=== PATIENT | female | born 1990 | race Caucasian/White ===

== ENCOUNTER 2016-12-19 07:05 | Emergency (ER) | payer OTHER ==
[2016-12-19] MEDS ORDERED: METOCLOPRAMIDE INJ 10MG/2ML VIAL (J2765) As Ordered ONE (07:47)
[2016-12-19 08:11] LABS: MEAN CORPUSCULAR HEMOGLOBIN 29.9 pg (27.0-33.0); MEAN CORPUSCULAR HGB CONC 35.9 g/dl (32.0-36.5); MEAN CORPUSCULAR VOLUME 83.2 fl (80.0-96.0); PLATELET COUNT, AUTOMATED 161 k/mm3 (150-450); RED CELL DISTRIBUTION WIDTH 12.8 % (11.5-14.5); WHITE BLOOD COUNT 13.2 K/mm3 (4.0-10.0)
[2016-12-19 08:30] LABS: ANION GAP 10 MEQ/L (8-16); BLOOD UREA NITROGEN 18 MG/DL (7-18); CALCIUM LEVEL 8.6 MG/DL (8.5-10.1); CARBON DIOXIDE LEVEL 25 MEQ/L (21-32); CHLORIDE LEVEL 104 MEQ/L (98-107); CREATININE FOR GFR 0.73 MG/DL (0.55-1.02); GLOMERULAR FILTRATION RATE > 60.0 (>60); GLUCOSE, FASTING 98 MG/DL (70-105); POTASSIUM SERUM 3.3 MEQ/L (3.5-5.1); SODIUM LEVEL 139 MEQ/L (136-145)
[2016-12-19 08:31] LABS: HYPERSEGMENTED POLYS 2+
[2016-12-19] MEDS ORDERED: POTASSIUM CHLORIDE 10 MEQ SR TABLET As Ordered ONE (09:04)
--- NOTE | 2016-12-19 09:32 | EDDOCDS ---
Physician Documentation [facility] Name: Thais Honeycutt Age: 25 yrs Sex: Female : 1990 Arrival Date: 12/19/2016 Time: 07:05 Bed I2 / M2 Private MD: Disposition: 12/19/16 09:08 Discharged to Home/Self Care. Impression: Nausea with vomiting, unspecified. - Condition is Stable. - Discharge Instructions: Nausea and Vomiting. - Prescriptions for Reglan 10 mg Oral Tablet - take 1 tablet by ORAL route every 6 hours As needed take 30 minutes before meals and at bedtime; 20 tablet. - Medication Reconciliation, Local Pharmacy Hours form. - Follow up: Emergency Department; When: As needed; Reason: Worsening of conditions. Follow up: Your Concreter; When: Call to arrange an appointment; Reason: Wound/Symptom Recheck, Recheck today's complaints, Continuance of care. - Problem is new. - Symptoms have improved. Historical: - Allergies: no known allergies; - Home Meds: 1. Vitamin Oral tab 1 tab once daily - PMHx: none; - PSHx: D & C; - Social history: Smoking status: Patient states former smoker of tobacco. No barriers to communication noted, The patient speaks fluent Panamanian, Speaks appropriately for age. - Family history: Not pertinent. - : The pt / caregiver states he / she is not on anticoagulants. Home medication list is obtained from the patient. - Exposure Risk Screening:: None identified. 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 2 in. (157.48 cm) (R); Pain 5/10; 09:16 BP 114 / 64; Pulse 101; Resp 20; Temp 97.9(O); Pulse Ox 99% on R/A; Pain 0/10; ct3 07:11 Body Mass Index 23.78 (58.97 kg, 157.48 cm) mlb1 MDM: 07:21 IV Saline Lock ordered. dt4 07:21 NS 0.9% 1000 ml IV at bolus once ordered. dt4 07:21 Metoclopramide 20 mg IV at 80 mg/hr once over 15 mins ordered. dt4 07:21 Fluid Challenge ordered. dt4 07:22 CBC with Diff Ordered. EDMS 07:22 Basic Metabolic Profile Ordered. EDMS 07:36 Financial registration complete. mm15 08:14 DIFFERENTIAL NO CHARGE Ordered. EDMS 08:14 PLATELET ESTIMATE Ordered. EDMS 08:33 [facility] Payment Agreement was scanned into [employer] and attached to record. lg 09:02 Potassium Chloride Extended Release Tablet 40 mEq PO once ordered. jc4 Administered Medications: 08:01 Drug: NS 0.9% 1000 ml [sodium chloride 0.9 % intravenous solution] Route: IV; Rate: ja5 bolus; Site: left wrist; 09:20 Follow up: IV Status: Completed infusion ja5 08:01 Drug: Metoclopramide 20 mg [metoclopramide 5 mg/mL injection solution] Route: IV; Rate: ja5 80 mg/hr; Infused Over: 15 mins; Site: left wrist; 09:02 CANCELLED (Other Intervention Used): Potassium Chloride Packet 40 mEq PO once dt4 09:07 Drug: Potassium Chloride 40 mEq [potassium chloride ER 10 mEq tablet,extended release ja5 (4 tabs)] Route: PO; Signatures: Dispatcher [employer] EDMS Drew Garcia, Reg Reg lg Bonilla Smallwood RN RN mlb1 Jasmin Mack RN RN jc4 Moe Delacruz mm15 Klarissa Lafleur, PABostonC PA-C dt4 Tessy Elena,RN RN ja5 The chart was reviewed and I authenticate all verbal orders and agree with the evaluation and treatment provided.Corrections: (The following items were deleted from the chart) 09:02 08:36 Potassium Chloride Packet 40 mEq PO once ordered. dt4 dt4 Attachments: 08:33 [facility] Payment Agreement lg MTDD
--- NOTE | 2016-12-19 09:32 | EDDOCDS ---
Nurse's Notes [facility] Name: Thais Honeycutt Age: 25 yrs Sex: Female : 1990 Arrival Date: 12/19/2016 Time: 07:05 Bed I2 / M2 Private MD: Diagnosis: Nausea with vomiting, unspecified Presentation: 12/19 07:09 Presenting complaint: Patient states: 12 weeks N/V began last night. Adult mlb1 Sepsis Screening: The patient does not have new or worsening altered mentation. Patient's respiratory rate is less than 22. Systolic blood pressure is greater than 100. Patient has a qSOFA score of 0- Negative Sepsis Screen. Suicide/Homicide risk assessment- the patient denies having any suicidal and/or homicidal ideations and does not present with any other emotional, behavioral or mental health complaints. Status: The patient is a dependent. Transition of care: patient was not received from another setting of care. 07:09 Acuity: ROHAN Level 4 mlb1 07:09 Method Of Arrival: Walkin/Carried/Asstd mlb1 07:37 Acuity level changed due to complexity of care. mlb1 07:37 Acuity: ROHAN Level 3 mlb1 Triage Assessment: 07:11 General: Appears in no apparent distress, Behavior is appropriate for age, cooperative. mlb1 Pain: Location: suprapubic area Pain currently is 5 out of 10 on a pain scale. Pt Declines HIV testing. GI: Reports nausea, vomiting. 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 Vitamin Oral tab 1 tab once daily - PMHx: none; - PSHx: D & C; - Social history: Smoking status: Patient states former smoker of tobacco. No barriers to communication noted, The patient speaks fluent Tamazight, Speaks appropriately for age. - Family history: Not pertinent. - : The pt / caregiver states he / she is not on anticoagulants. Home medication list is obtained from the patient. - Exposure Risk Screening:: None identified. Screenin:20 Screening information is obtained from the patient. Fall risk: No risks identified. ja5 Assistance ADL's: requires no assistance with activities of daily living. Abuse/DV Screen: The patient / caregiver reports he/she is: not in a situation that causes fear, pain or injury. Nutritional screening: On no prescribed diet. Advance Directives: Currently, there is no health care proxy. There is no active DNR order. There is no living will. There is no Power of Tank Truck Driver. home support is adequate. Assessment: 07:17 General: Appears uncomfortable, Behavior is appropriate for age, cooperative. Pain: ja5 Location: right lower quadrant and left lower quadrant Pain currently is 5 out of 10 on a pain scale. Neurological: Level of Consciousness is awake, alert, Oriented to person, place, time. Cardiovascular: Capillary refill < 3 seconds Heart tones S1 S2 present. Respiratory: Airway is patent Respiratory effort is even, unlabored, Respiratory pattern is regular, symmetrical, Breath sounds are clear bilaterally. GI: Abdomen is non- distended Bowel sounds present X 4 quads. Abd is soft X 4 quads Reports nausea. Derm: Skin is intact, Skin is pink, warm & dry. 09:28 General: Appears in no apparent distress, Behavior is appropriate for age, cooperative. ja5 Pain: Denies pain. Neurological: Level of Consciousness is awake, alert, Oriented to person, place, time. Cardiovascular: Capillary refill < 3 seconds. Respiratory: Airway is patent Respiratory effort is even, unlabored, Respiratory pattern is regular, symmetrical. GI: Denies cramping, nausea, vomiting, pain. Derm: Skin is intact, Skin is pink, warm & dry. 09:29 General: Patient states "I am feeling much better" as she sits up in stretcher with no ja5 complaints of abdominal pain, nausea or vomiting. . Vital Signs: 07:11 BP 120 / 66; Pulse 114; Resp 16; Temp 98.4(TE); Pulse Ox 98% on R/A; Weight 58.97 kg mlb1 (R); Height 5 ft. 2 in. (157.48 cm) (R); Pain 5/10; 09:16 BP 114 / 64; Pulse 101; Resp 20; Temp 97.9(O); Pulse Ox 99% on R/A; Pain 0/10; ct3 07:11 Body Mass Index 23.78 (58.97 kg, 157.48 cm) mlb1 Vitals: 07:11 Log In Time: December 19, 2016 at 07:05. mlb1 07:40 Heart Tones 156BPM. jc4 ED Course: 07:07 Patient visited by Geremias Melton, Reg. pm4 07:07 Patient moved to Waiting pm4 07:09 Patient visited by Bonilla Smallwood, RAMZE. mlb1 07:10 Triage Initiated mlb1 07:10 The patient / caregiver is instructed regarding the plan of care and ED course. ja5 07:13 Patient visited by Bonilla Smallwood, RAMEZ. mlb1 07:13 Jasmin Mack, RN is Primary Nurse. mlb1 07:13 Tessy Elena,RAMEZ is Primary Nurse. mlb1 07:13 Patient moved to I2 / M2 mlb1 07:15 Klarissa Lafleur PA-C is PHCP. dt4 07:15 Axel Mcneal MD is Attending Physician. dt4 07:15 Patient visited by Klarissa Lafleur PA-C. dt4 07:59 Basic Metabolic Profile Sent. jc4 07:59 CBC with Diff Sent. jc4 08:00 Inserted saline lock: 20 gauge in left wrist. Pt tolerated procedure well. jc4 08:01 Missed attempts: 20 gauge X 2 in right antecubital area, in left antecubital area. ja5 08:25 Patient visited by Melba Ornelas PCA. ct3 08:33 [facility] Payment Agreement was scanned into [employer] and attached to record. lg 08:57 DIFFERENTIAL NO CHARGE Sent. jc4 09:08 Your Cellophaner is Referral Physician. dt4 09:17 Patient visited by Melba Ornelas PCA. ct3 09:27 Discontinued lock intact, bleeding controlled, pressure dressing applied, No ja5 redness/swelling at site. No procedures done that require assistance. Administered Medications: 08:01 Drug: NS 0.9% 1000 ml [sodium chloride 0.9 % intravenous solution] Route: IV; Rate: ja5 bolus; Site: left wrist; 09:20 Follow up: IV Status: Completed infusion ja5 08:01 Drug: Metoclopramide 20 mg [metoclopramide 5 mg/mL injection solution] Route: IV; Rate: ja5 80 mg/hr; Infused Over: 15 mins; Site: left wrist; 09:02 CANCELLED (Other Intervention Used): Potassium Chloride Packet 40 mEq PO once dt4 09:07 Drug: Potassium Chloride 40 mEq [potassium chloride ER 10 mEq tablet,extended release ja5 (4 tabs)] Route: PO; Order Results: Lab Order: CBC with Diff; SPEC'M 12/19/16 07:56 Test: WHITE BLOOD COUNT; Value: 13.2; Range: 4.0-10.0; Abnormal: Above high normal; Units: K/mm3; Status: F Test: RED BLOOD COUNT; Value: 4.95; Range: 4.00-5.40; Units: M/mm3; Status: F Test: HEMOGLOBIN; Value: 14.8; Range: 12.0-16.0; Units: g/dl; Status: F Test: HEMATOCRIT; Value: 41.2; Range: 36.0-47.0; Units: %; Status: F Test: MEAN CORPUSCULAR VOLUME; Value: 83.2; Range: 80.0-96.0; Units: fl; Status: F Test: MEAN CORPUSCULAR HEMOGLOBIN; Value: 29.9; Range: 27.0-33.0; Units: pg; Status: F Test: MEAN CORPUSCULAR HGB CONC; Value: 35.9; Range: 32.0-36.5; Units: g/dl; Status: F Test: RED CELL DISTRIBUTION WIDTH; Value: 12.8; Range: 11.5-14.5; Units: %; Status: F Test: PLATELET COUNT, AUTOMATED; Value: 161; Range: 150-450; Units: k/mm3; Status: F Test: NEUTROPHILS; Value: 96; Range: 35-75; Abnormal: Above high normal; Units: %; Status: F Test: LYMPHOCYTES; Value: 4; Range: 16-52; Abnormal: Below low normal; Units: %; Status: F Test: HYPERSEGMENTED POLYS ; Value: 2+; Status: F Lab Order: Basic Metabolic Profile; SPEC'M 12/19/16 07:56 Test: GLUCOSE, FASTING; Value: 98; Range: 70-105; Units: MG/DL; Status: F Test: BLOOD UREA NITROGEN; Value: 18; Range: 7-18; Units: MG/DL; Status: F Test: CREATININE FOR GFR; Value: 0.73; Range: 0.55-1.02; Units: MG/DL; Status: F Test: GLOMERULAR FILTRATION RATE; Value: > 60.0; Range: >60; Status: F Test: SODIUM LEVEL; Value: 139; Range: 136-145; Units: MEQ/L; Status: F Test: POTASSIUM SERUM; Value: 3.3; Range: 3.5-5.1; Abnormal: Below low normal; Units: MEQ/L; Status: F Test: CHLORIDE LEVEL; Value: 104; Range: 98-107; Units: MEQ/L; Status: F Test: CARBON DIOXIDE LEVEL; Value: 25; Range: 21-32; Units: MEQ/L; Status: F Test: ANION GAP; Value: 10; Range: 8-16; Units: MEQ/L; Status: F Test: CALCIUM LEVEL; Value: 8.6; Range: 8.5-10.1; Units: MG/DL; Status: F Test Note: ; Units are mL/min/1.73 m2 Chronic Kidney Disease Staging per NKF: Stage I & II GFR >=60 Normal to Mildly Decreased Stage III GFR 30-59 Moderately Decreased Stage IV GFR 15-29 Severely Decreased Stage V GFR <15 Very Little GFR Left ESRD GFR <15 on COMPUTING MACHINE OPERATOR Lab Order: PLATELET ESTIMATE; SPEC'M 12/19/16 07:56 Test: PLATELET ESTIMATE; Value: NORMAL; Range: NORMAL; Status: F Test Note: ; SML AMT OF PLAT CLUMPING NOTED ON SLIDE. Outcome: :08 Discharge ordered by Provider. dt4 09:27 Discharge Assessment: Patient awake, alert and oriented x 3. No cognitive and/or ja5 functional deficits noted. Patient verbalized understanding of disposition instructions. patient administered narcotics - no. The following High Risk Discharge criteria are identified: None. Discharged to home ambulatory. Condition: stable. 09:28 No special radiology studies were completed. Property :Personal belongings accompany Pt.ja5 09:31 Patient left the ED. ja5 Signatures: Drew Garcia, Reg Reg lg Bonilla Smallwood RN RN mlb1 Jasmin Mack, RN RN jc4 Melba Ornelas, PRESLEY GIS ADMINISTRATOR ct3 Klarissa Lafleur PA-C PABostonC dt4 Geremias Melton, Reg Reg pm4 Tessy Elena,RN RN ja5 Corrections: (The following items were deleted from the chart) 07:11 07:09 Presenting complaint: Patient states: N/V began last night mlb1 mlb1 07:11 07:09 Adult Sepsis Screening: The patient does not have new or worsening altered mlb1 mentation. Patient's respiratory rate is less than 22. Systolic blood pressure is greater than 100. Patient has a qSOFA score of 0- Negative Sepsis Screen. mlb1 MTDD
--- NOTE | 2016-12-21 10:31 | EDDOCDS ---
Nurse's Notes [facility] Name: Thais Honeycutt Age: 25 yrs Sex: Female : 1990 Arrival Date: 12/19/2016 Time: 07:05 Bed I2 / M2 Private MD: Diagnosis: Nausea with vomiting, unspecified Presentation: 12/19 07:09 Presenting complaint: Patient states: 12 weeks N/V began last night. Adult mlb1 Sepsis Screening: The patient does not have new or worsening altered mentation. Patient's respiratory rate is less than 22. Systolic blood pressure is greater than 100. Patient has a qSOFA score of 0- Negative Sepsis Screen. Suicide/Homicide risk assessment- the patient denies having any suicidal and/or homicidal ideations and does not present with any other emotional, behavioral or mental health complaints. Status: The patient is a dependent. Transition of care: patient was not received from another setting of care. 07:09 Acuity: ROHAN Level 4 mlb1 07:09 Method Of Arrival: Walkin/Carried/Asstd mlb1 07:37 Acuity level changed due to complexity of care. mlb1 07:37 Acuity: ROHAN Level 3 mlb1 Triage Assessment: 07:11 General: Appears in no apparent distress, Behavior is appropriate for age, cooperative. mlb1 Pain: Location: suprapubic area Pain currently is 5 out of 10 on a pain scale. Pt Declines HIV testing. GI: Reports nausea, vomiting. 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 Vitamin Oral tab 1 tab once daily - PMHx: none; - PSHx: D & C; - Social history: Smoking status: Patient states former smoker of tobacco. No barriers to communication noted, The patient speaks fluent Turkmen, Speaks appropriately for age. - Family history: Not pertinent. - : The pt / caregiver states he / she is not on anticoagulants. Home medication list is obtained from the patient. - Exposure Risk Screening:: None identified. Screenin:20 Screening information is obtained from the patient. Fall risk: No risks identified. ja5 Assistance ADL's: requires no assistance with activities of daily living. Abuse/DV Screen: The patient / caregiver reports he/she is: not in a situation that causes fear, pain or injury. Nutritional screening: On no prescribed diet. Advance Directives: Currently, there is no health care proxy. There is no active DNR order. There is no living will. There is no Power of Echo Vasc Tech. home support is adequate. Assessment: 07:17 General: Appears uncomfortable, Behavior is appropriate for age, cooperative. Pain: ja5 Location: right lower quadrant and left lower quadrant Pain currently is 5 out of 10 on a pain scale. Neurological: Level of Consciousness is awake, alert, Oriented to person, place, time. Cardiovascular: Capillary refill < 3 seconds Heart tones S1 S2 present. Respiratory: Airway is patent Respiratory effort is even, unlabored, Respiratory pattern is regular, symmetrical, Breath sounds are clear bilaterally. GI: Abdomen is non- distended Bowel sounds present X 4 quads. Abd is soft X 4 quads Reports nausea. Derm: Skin is intact, Skin is pink, warm & dry. 09:28 General: Appears in no apparent distress, Behavior is appropriate for age, cooperative. ja5 Pain: Denies pain. Neurological: Level of Consciousness is awake, alert, Oriented to person, place, time. Cardiovascular: Capillary refill < 3 seconds. Respiratory: Airway is patent Respiratory effort is even, unlabored, Respiratory pattern is regular, symmetrical. GI: Denies cramping, nausea, vomiting, pain. Derm: Skin is intact, Skin is pink, warm & dry. 09:29 General: Patient states "I am feeling much better" as she sits up in stretcher with no ja5 complaints of abdominal pain, nausea or vomiting. . Vital Signs: 07:11 BP 120 / 66; Pulse 114; Resp 16; Temp 98.4(TE); Pulse Ox 98% on R/A; Weight 58.97 kg mlb1 (R); Height 5 ft. 2 in. (157.48 cm) (R); Pain 5/10; 09:16 BP 114 / 64; Pulse 101; Resp 20; Temp 97.9(O); Pulse Ox 99% on R/A; Pain 0/10; ct3 07:11 Body Mass Index 23.78 (58.97 kg, 157.48 cm) mlb1 Vitals: 07:11 Log In Time: December 19, 2016 at 07:05. mlb1 07:40 Heart Tones 156BPM. jc4 ED Course: 07:07 Patient visited by Geremias Melton, Reg. pm4 07:07 Patient moved to Waiting pm4 07:09 Patient visited by Bonilla Smallwood, RAMEZ. mlb1 07:10 Triage Initiated mlb1 07:10 The patient / caregiver is instructed regarding the plan of care and ED course. ja5 07:13 Patient visited by Bonilla Smallwood, RN. mlb1 07:13 Jasmin Mack, RN is Primary Nurse. mlb1 07:13 Tessy Elena,RAMEZ is Primary Nurse. mlb1 07:13 Patient moved to I2 / M2 mlb1 07:15 Klarissa Lafleur PA-C is PHCP. dt4 07:15 Axel Mcneal MD is Attending Physician. dt4 07:15 Patient visited by Klarissa Lafleur PA-C. dt4 07:59 Basic Metabolic Profile Sent. jc4 07:59 CBC with Diff Sent. jc4 08:00 Inserted saline lock: 20 gauge in left wrist. Pt tolerated procedure well. jc4 08:01 Missed attempts: 20 gauge X 2 in right antecubital area, in left antecubital area. ja5 08:25 Patient visited by Melba Ornelas PCA. ct3 08:33 [facility] Payment Agreement was scanned into [employer] and attached to record. lg 08:57 DIFFERENTIAL NO CHARGE Sent. jc4 09:08 Your Grocery Packer is Referral Physician. dt4 09:17 Patient visited by Melba Ornelas PCA. ct3 09:27 Discontinued lock intact, bleeding controlled, pressure dressing applied, No ja5 redness/swelling at site. No procedures done that require assistance. 15:44 T-Sheet-- Draft Copy was scanned into [employer] and attached to record. gb Administered Medications: 08:01 Drug: NS 0.9% 1000 ml [sodium chloride 0.9 % intravenous solution] Route: IV; Rate: ja5 bolus; Site: left wrist; 09:20 Follow up: IV Status: Completed infusion ja5 08:01 Drug: Metoclopramide 20 mg [metoclopramide 5 mg/mL injection solution] Route: IV; Rate: ja5 80 mg/hr; Infused Over: 15 mins; Site: left wrist; 08:20 Follow up: IV Status: Completed infusion ja5 09:02 CANCELLED (Other Intervention Used): Potassium Chloride Packet 40 mEq PO once dt4 09:07 Drug: Potassium Chloride 40 mEq [potassium chloride ER 10 mEq tablet,extended release ja5 (4 tabs)] Route: PO; Order Results: Lab Order: CBC with Diff; 12/19/16 07:56 Test: WHITE BLOOD COUNT; Value: 13.2; Range: 4.0-10.0; Abnormal: Above high normal; Units: K/mm3; Status: F Test: RED BLOOD COUNT; Value: 4.95; Range: 4.00-5.40; Units: M/mm3; Status: F Test: HEMOGLOBIN; Value: 14.8; Range: 12.0-16.0; Units: g/dl; Status: F Test: HEMATOCRIT; Value: 41.2; Range: 36.0-47.0; Units: %; Status: F Test: MEAN CORPUSCULAR VOLUME; Value: 83.2; Range: 80.0-96.0; Units: fl; Status: F Test: MEAN CORPUSCULAR HEMOGLOBIN; Value: 29.9; Range: 27.0-33.0; Units: pg; Status: F Test: MEAN CORPUSCULAR HGB CONC; Value: 35.9; Range: 32.0-36.5; Units: g/dl; Status: F Test: RED CELL DISTRIBUTION WIDTH; Value: 12.8; Range: 11.5-14.5; Units: %; Status: F Test: PLATELET COUNT, AUTOMATED; Value: 161; Range: 150-450; Units: k/mm3; Status: F Test: NEUTROPHILS; Value: 96; Range: 35-75; Abnormal: Above high normal; Units: %; Status: F Test: LYMPHOCYTES; Value: 4; Range: 16-52; Abnormal: Below low normal; Units: %; Status: F Test: HYPERSEGMENTED POLYS ; Value: 2+; Status: F Lab Order: Basic Metabolic Profile; 12/19/16 07:56 Test: GLUCOSE, FASTING; Value: 98; Range: 70-105; Units: MG/DL; Status: F Test: BLOOD UREA NITROGEN; Value: 18; Range: 7-18; Units: MG/DL; Status: F Test: CREATININE FOR GFR; Value: 0.73; Range: 0.55-1.02; Units: MG/DL; Status: F Test: GLOMERULAR FILTRATION RATE; Value: > 60.0; Range: >60; Status: F Test: SODIUM LEVEL; Value: 139; Range: 136-145; Units: MEQ/L; Status: F Test: POTASSIUM SERUM; Value: 3.3; Range: 3.5-5.1; Abnormal: Below low normal; Units: MEQ/L; Status: F Test: CHLORIDE LEVEL; Value: 104; Range: 98-107; Units: MEQ/L; Status: F Test: CARBON DIOXIDE LEVEL; Value: 25; Range: 21-32; Units: MEQ/L; Status: F Test: ANION GAP; Value: 10; Range: 8-16; Units: MEQ/L; Status: F Test: CALCIUM LEVEL; Value: 8.6; Range: 8.5-10.1; Units: MG/DL; Status: F Test Note: ; Units are mL/min/1.73 m2 Chronic Kidney Disease Staging per NKF: Stage I & II GFR >=60 Normal to Mildly Decreased Stage III GFR 30-59 Moderately Decreased Stage IV GFR 15-29 Severely Decreased Stage V GFR <15 Very Little GFR Left ESRD GFR <15 on JUNCTION MAKER Lab Order: PLATELET ESTIMATE; SPEC'M 12/19/16 07:56 Test: PLATELET ESTIMATE; Value: NORMAL; Range: NORMAL; Status: F Test Note: ; SML AMT OF PLAT CLUMPING NOTED ON SLIDE. Outcome: 09:08 Discharge ordered by Provider. dt4 09:27 Discharge Assessment: Patient awake, alert and oriented x 3. No cognitive and/or ja5 functional deficits noted. Patient verbalized understanding of disposition instructions. patient administered narcotics - no. The following High Risk Discharge criteria are identified: None. Discharged to home ambulatory. Condition: stable. 09:28 No special radiology studies were completed. Property :Personal belongings accompany Pt.ja5 09:31 Patient left the ED. ja5 Signatures: Mary Dunne, Reg Reg gb Drew Garcia, Reg Reg lg Cl, Bonilla Lynch, RN RN mlb1 Jasmin Mack, RN RN jc4 Melba Ornelas, INSPECTOR ELEVATORS INSPECTOR ELEVATORS ct3 Klarissa Lafleur, PA-C PA-C dt4 Geremias Melton, Reg Reg pm4 Tessy ElenaRN RN ja5 Corrections: (The following items were deleted from the chart) : Presenting complaint: Patient states: N/V began last night mlb1 mlb1 07: Adult Sepsis Screening: The patient does not have new or worsening altered mlb1 mentation. Patient's respiratory rate is less than 22. Systolic blood pressure is greater than 100. Patient has a qSOFA score of 0- Negative Sepsis Screen. mlb1 Chart Complete MTDD
--- NOTE | 2016-12-21 10:31 | EDDOCDS ---
Physician Documentation [facility] Name: Thais Honeycutt Age: 25 yrs Sex: Female : 1990 Arrival Date: 12/19/2016 Time: 07:05 Bed I2 / M2 Private MD: Disposition: 12/19/16 09:08 Discharged to Home/Self Care. Impression: Nausea with vomiting, unspecified. - Condition is Stable. - Discharge Instructions: Nausea and Vomiting. - Prescriptions for Reglan 10 mg Oral Tablet - take 1 tablet by ORAL route every 6 hours As needed take 30 minutes before meals and at bedtime; 20 tablet. - Medication Reconciliation, Local Pharmacy Hours form. - Follow up: Emergency Department; When: As needed; Reason: Worsening of conditions. Follow up: Your Women Nurse; When: Call to arrange an appointment; Reason: Wound/Symptom Recheck, Recheck today's complaints, Continuance of care. - Problem is new. - Symptoms have improved. Historical: - Allergies: no known allergies; - Home Meds: 1. Vitamin Oral tab 1 tab once daily - PMHx: none; - PSHx: D & C; - Social history: Smoking status: Patient states former smoker of tobacco. No barriers to communication noted, The patient speaks fluent Indonesian, Speaks appropriately for age. - Family history: Not pertinent. - : The pt / caregiver states he / she is not on anticoagulants. Home medication list is obtained from the patient. - Exposure Risk Screening:: None identified. DOCTOR OF DENTAL SURGERY: 12/19 07:11 unknown LMP mlb1 Vital Signs: 07:11 BP 120 / 66; Pulse 114; Resp 16; Temp 98.4(TE); Pulse Ox 98% on R/A; Weight 58.97 kg / mlb1 130.01 lbs (R); Height 5 ft. 2 in. (157.48 cm) (R); Pain 5/10; 09:16 BP 114 / 64; Pulse 101; Resp 20; Temp 97.9(O); Pulse Ox 99% on R/A; Pain 0/10; ct3 07:11 Body Mass Index 23.78 (58.97 kg, 157.48 cm) mlb1 MDM: 07:21 IV Saline Lock ordered. dt4 07:21 NS 0.9% 1000 ml IV at bolus once ordered. dt4 07:21 Metoclopramide 20 mg IV at 80 mg/hr once over 15 mins ordered. dt4 07:21 Fluid Challenge ordered. dt4 07:22 CBC with Diff Ordered. EDMS 07:22 Basic Metabolic Profile Ordered. EDMS 07:36 Financial registration complete. mm15 08:14 DIFFERENTIAL NO CHARGE Ordered. EDMS 08:14 PLATELET ESTIMATE Ordered. EDMS 08:33 [facility] Payment Agreement was scanned into SpeedDate and attached to record. lg 09:02 Potassium Chloride Extended Release Tablet 40 mEq PO once ordered. jc4 15:44 T-Sheet-- Draft Copy was scanned into SpeedDate and attached to record. gb Administered Medications: 08:01 Drug: NS 0.9% 1000 ml [sodium chloride 0.9 % intravenous solution] Route: IV; Rate: ja5 bolus; Site: left wrist; 09:20 Follow up: IV Status: Completed infusion ja5 08:01 Drug: Metoclopramide 20 mg [metoclopramide 5 mg/mL injection solution] Route: IV; Rate: ja5 80 mg/hr; Infused Over: 15 mins; Site: left wrist; 08:20 Follow up: IV Status: Completed infusion ja5 09:02 CANCELLED (Other Intervention Used): Potassium Chloride Packet 40 mEq PO once dt4 09:07 Drug: Potassium Chloride 40 mEq [potassium chloride ER 10 mEq tablet,extended release ja5 (4 tabs)] Route: PO; Signatures: Dispatcher [employer] EDMS DelvisMary coelho, Reg Reg gb Drew Garcia, Reg Reg lg Bonilla Smallwood RN RN mlb1 Jasmin Mack RN RN jc4 Moe Delacruz mm15 Klarissa Lafleur, PA-Sandra PADee Dee dt4 Tessy Elena,RN RN ja5 The chart was reviewed and I authenticate all verbal orders and agree with the evaluation and treatment provided.Corrections: (The following items were deleted from the chart) 09:02 08:36 Potassium Chloride Packet 40 mEq PO once ordered. dt4 dt4 Attachments: 08:33 [facility] Payment Agreement lg 15:44 T-Sheet-- Draft Copy gb Chart Complete MTDD
--- NOTE | 2016-12-21 10:31 | EDDOCDS ---
Physician Documentation [facility] Name: Thais Honeycutt Age: 25 yrs Sex: Female : 1990 Arrival Date: 12/19/2016 Time: 07:05 Bed I2 / M2 Private MD: Disposition: 12/19/16 09:08 Discharged to Home/Self Care. Impression: Nausea with vomiting, unspecified. - Condition is Stable. - Discharge Instructions: Nausea and Vomiting. - Prescriptions for Reglan 10 mg Oral Tablet - take 1 tablet by ORAL route every 6 hours As needed take 30 minutes before meals and at bedtime; 20 tablet. - Medication Reconciliation, Local Pharmacy Hours form. - Follow up: Emergency Department; When: As needed; Reason: Worsening of conditions. Follow up: Your Games Manager; When: Call to arrange an appointment; Reason: Wound/Symptom Recheck, Recheck today's complaints, Continuance of care. - Problem is new. - Symptoms have improved. Historical: - Allergies: no known allergies; - Home Meds: 1. Vitamin Oral tab 1 tab once daily - PMHx: none; - PSHx: D & C; - Social history: Smoking status: Patient states former smoker of tobacco. No barriers to communication noted, The patient speaks fluent Palauan, Speaks appropriately for age. - Family history: Not pertinent. - : The pt / caregiver states he / she is not on anticoagulants. Home medication list is obtained from the patient. - Exposure Risk Screening:: None identified. HEALTH SERVICES INFORMATION SPECIALIST: 12/19 07:11 unknown LMP mlb1 Vital Signs: 07:11 BP 120 / 66; Pulse 114; Resp 16; Temp 98.4(TE); Pulse Ox 98% on R/A; Weight 58.97 kg / mlb1 130.01 lbs (R); Height 5 ft. 2 in. (157.48 cm) (R); Pain 5/10; 09:16 BP 114 / 64; Pulse 101; Resp 20; Temp 97.9(O); Pulse Ox 99% on R/A; Pain 0/10; ct3 07:11 Body Mass Index 23.78 (58.97 kg, 157.48 cm) mlb1 MDM: 07:21 IV Saline Lock ordered. dt4 07:21 NS 0.9% 1000 ml IV at bolus once ordered. dt4 07:21 Metoclopramide 20 mg IV at 80 mg/hr once over 15 mins ordered. dt4 07:21 Fluid Challenge ordered. dt4 07:22 CBC with Diff Ordered. EDMS 07:22 Basic Metabolic Profile Ordered. EDMS 07:36 Financial registration complete. mm15 08:14 DIFFERENTIAL NO CHARGE Ordered. EDMS 08:14 PLATELET ESTIMATE Ordered. EDMS 08:33 [facility] Payment Agreement was scanned into [employer] and attached to record. lg 09:02 Potassium Chloride Extended Release Tablet 40 mEq PO once ordered. jc4 15:44 T-Sheet-- Draft Copy was scanned into [employer] and attached to record. gb Administered Medications: 08:01 Drug: NS 0.9% 1000 ml [sodium chloride 0.9 % intravenous solution] Route: IV; Rate: ja5 bolus; Site: left wrist; 09:20 Follow up: IV Status: Completed infusion ja5 08:01 Drug: Metoclopramide 20 mg [metoclopramide 5 mg/mL injection solution] Route: IV; Rate: ja5 80 mg/hr; Infused Over: 15 mins; Site: left wrist; 08:20 Follow up: IV Status: Completed infusion ja5 09:02 CANCELLED (Other Intervention Used): Potassium Chloride Packet 40 mEq PO once dt4 09:07 Drug: Potassium Chloride 40 mEq [potassium chloride ER 10 mEq tablet,extended release ja5 (4 tabs)] Route: PO; Signatures: Dispatcher [employer] EDMS DelvisMary coelho, Reg Reg gb Drew Garcia, Reg Reg lg Bonilla Smallwood RN RN mlb1 Jasmin Mack RN RN jc4 Moe Delacruz mm15 Klarissa Lafleur, PA-Sandra PADee Dee dt4 Tessy Elena,RN RN ja5 The chart was reviewed and I authenticate all verbal orders and agree with the evaluation and treatment provided.Corrections: (The following items were deleted from the chart) 09:02 08:36 Potassium Chloride Packet 40 mEq PO once ordered. dt4 dt4 Attachments: 08:33 [facility] Payment Agreement lg 15:44 T-Sheet-- Draft Copy gb Chart Complete MTDD
== END 2016-12-19 09:31 | disposition home or self-care (01) ==
LOC: M ED 07:05
DX: O21.9 Vomiting of pregnancy, unspecified (principal); Z3A.12 12 weeks gestation of pregnancy; Z87.891 Personal history of nicotine dependence
CPT/HCPCS: 80048; 85025; 96361; 96365; 99284; J2765

== ENCOUNTER 2017-07-13 12:58 | Inpatient (IN) | payer OTHER ==
[2017-07-13] VITALS (29 sets, daily range): BP systolic 104–154; BP diastolic 53–81
[~2017-07-13] VITALS: Ht 157.5 cm; Wt 67.0 kg
[2017-07-13] MEDS ORDERED: LR 1,000 ML IV SCH ×2 (13:29)
[2017-07-13] MEDS ORDERED: OXYTOCIN DRIP 30 UNITS in APPROPRIATE DILUENT 1 EA IV SCH (13:30)
--- NOTE | 2017-07-13 13:46 | HPEPDOC ---
Obstetrical History & Physical General Date of Admission Jul 13, 2017 at 12:58 History of Present Illness 25 y/o at 41+2 by 1st tri US here for scheduled IOL. D/C and ctx's have increased dince yest. No VB/LOF. Pos FM. Prob list: FH Down's on 's side, decided against genetic testinG LGSIL pap Father alpha thal carrier, pt has nl electrophoresis Information Provided By: Patient Care Care: Good Care Dating Final EDC by: 1st trimester (US) Past Medical History Past Obstetrical History : Past Obstetrical History: Multigravida Type of Delivery: Spontaneous Vaginal Del. (2012 6 lb 10 oz, IOL for HTN issues, chorioamnionitis, baby was in NICU for 1 week with jaundice and need for abx) PERSONAL CARE HOME ADMINISTRATOR History: Spontaneous (2016 needed D&C) Past Medical History Medical History denies Surgical History: Dilatation and Curettage Family History Significant Family History: No pertinent family hx Social History Marital Status: Family situation: Spouse/partner home Psychosocial History: No pertinent psych hx * Smoker: non-smoker Alcohol: Denies Drugs: denies Abuse Violence Screening Have you been hit/kicked/slapp: No Have you been sexually assault: No Imunizations Tdap status: declined Influenza Status: current Allergies Coded Allergies: No Known Allergies (Unverified , 09/19/16) Physical Examination Physical Examination GENERAL: Alert and oriented times three. BREAST: . ABDOMEN: Gravid and non-tender to touch. FETUS: VTX by sterile vaginal examination, Cx 3/60/-2/intact/vtx well applied. Adeq pelvis, proven to almost 7 lbs, EFW 3200 gm. HEART RATE: Regular rate and rhythm. LUNGS: Clear to auscultation (CTA). EXTREMITIES: No edema. Laboratory Data Urine Culture: No Growth Pertinent Laboratoy Data Blood Type: O+ RBC Antibody Screen: Negative HIV: Negative Hepatitis B: Negative Hepatitis C: Unknown Rapid Plasma Reagin: Nonreactive Rubella: Immune Varicella: Immune Chlamydia/Gonorrhea: Negative Group B Streptococcus: Negative Quad Screen Test: Declined Cystic Fibrosis: Negative Glucose Tolerance Test: 114 Anatomy Ultrasound Ultrasound Date: Feb 14, 2017 Placenta Location: Anterior Normal Anatomy: Yes Placenta Previa: No Steroid Therapy Steroid Therapy: No Assessment Variability: Moderate Accelerations: Positive Decelerations: None Tocometer Contractions: Yes Frequency: irregular Duration: less than 60 seconds Assessment/Plan Assessment 41+4, proven pelvis. Favorable Cx. Plan Admit and orient. Commercial Accountant and consent. Diet: clrs Group B Streptococcus (GBS) neg Labs and intravenous (IV) per unit protocol. Counseled on Pitocin and induction of labor (IOL). Lactated Ringers (LR): 125 mL/hr. Anticipate normal spontaneous delivery () C-S as appopriate. Sessions SESSIONS,PETER Hess MD Jul 13, 2017 13:46
[2017-07-13] MEDS ORDERED: PRENTAB9 PO (14:20)
[2017-07-13 16:19] LABS: MEAN CORPUSCULAR HEMOGLOBIN 32.9 pg (27.0-33.0); MEAN CORPUSCULAR VOLUME 88.9 fl (80.0-96.0); RED CELL DISTRIBUTION WIDTH 13.7 % (11.5-14.5); WHITE BLOOD COUNT 11.4 K/mm3 (4.0-10.0)
--- NOTE | 2017-07-13 18:20 | IPNPDOC ---
Text Note Date of Service The patient was seen on 07/13/17. NOTE NST Cat 1 Cx /75/-2/vtx well applied, not ballotable like last check Doing well. Recheck 3-4 hrs, sooner prn. Sessions VS,Vinicius, I+O VS, Vinicius I+O Laboratory Tests 07/13/17 14:10 Red Blood Count 4.11, Mean Corpuscular Volume 88.9, Mean Corpuscular Hemoglobin 32.9, Mean Corpuscular Hemoglobin Concent 37.0 H, Red Cell Distribution Width 13.7 Vital Signs Date Time Temp Pulse Resp B/P (MAP) Pulse Ox O2 Delivery O2 Flow Rate FiO2 07/13/17 13:12 97.4 91 18 127/66 (86) Room Air SESSIONS,PETER Hess MD Jul 13, 2017 18:20
--- NOTE | 2017-07-13 21:17 | IPNPDOC ---
Text Note Date of Service The patient was seen on 07/13/17. NOTE NST Cat 1 Pain signif Cx /-1/BBOW Desires epidural. Begin bolus. Recheck in ~2 hrs, sooner prn Sessions VS,Vinicius, I+O VSVinicius I+O Laboratory Tests 07/13/17 14:10 Red Blood Count 4.11, Mean Corpuscular Volume 88.9, Mean Corpuscular Hemoglobin 32.9, Mean Corpuscular Hemoglobin Concent 37.0 H, Red Cell Distribution Width 13.7 Vital Signs Date Time Temp Pulse Resp B/P (MAP) Pulse Ox O2 Delivery O2 Flow Rate FiO2 07/13/17 18:37 90 119/81 (94) 07/13/17 17:32 97.3 18 Room Air SESSIONS,PETER Hess MD Jul 13, 2017 21:17
[2017-07-13] MEDS ORDERED: FENTANYL 2MCG/ML ROPIVACAINE 0.2% IN 0.9% NACL 200ML IVBAG As Ordered ONE (21:29)
[2017-07-13] MEDS ORDERED: REFRIGERATOR IV KEYS XX PRN (23:00)
[2017-07-13] MEDS ORDERED: LACTATED RINGER'S 1000 ML IV PRN (23:00)
[2017-07-13] MEDS ORDERED: NALOXONE INJ 0.4 MG/1 ML VIAL (J2310) IV PRN (23:00)
[2017-07-13] MEDS ORDERED: ONDANSETRON 4MG/2ML VIAL (J2405) IV PRN (23:00)
[2017-07-13] MEDS ORDERED: EPIDURAL/PCA KEYS XX PRN (23:00)
[2017-07-13] MEDS ORDERED: ePHEDrine SULFATE 25 MG/5 ML(5MG/ML) SYRINGE IV PRN (23:00)
[2017-07-13] MEDS ORDERED: EPIDURAL COMMENT XX SCH (23:00)
[2017-07-13] MEDS ORDERED: diphenhydrAMINE INJ 50MG/ML VIAL (J1200) IV PRN (23:00)
[2017-07-13] MEDS ORDERED: FENTANYL/ROPIVACAINE/NACL BAG 200 ML EPIDURAL SCH (23:00)
[2017-07-14] VITALS (10 sets, daily range): BP systolic 101–121; BP diastolic 54–81
--- NOTE | 2017-07-14 01:08 | IPNPDOC ---
Text Note Date of Service The patient was seen on 07/14/17. NOTE I was busy in another pss delivery professional check at 0030 after clear fluid noted at SROM, 8/100/+1 NST reassuring with a short run of lates that responded to pos change. Mod phil. Recheck ~0230 Sessions VS,Vinicius, I+O VSVinicius I+O Laboratory Tests 07/13/17 14:10 Red Blood Count 4.11, Mean Corpuscular Volume 88.9, Mean Corpuscular Hemoglobin 32.9, Mean Corpuscular Hemoglobin Concent 37.0 H, Red Cell Distribution Width 13.7 Vital Signs Date Time Temp Pulse Resp B/P (MAP) Pulse Ox O2 Delivery O2 Flow Rate FiO2 07/13/17 23:15 73 124/60 (81) 07/13/17 21:03 98.0 07/13/17 17:32 18 Room Air SESSIONS,PETER Hess MD Jul 14, 2017 01:08
[2017-07-14] MEDS ORDERED: OXYTOCIN DRIP 30 UNITS in APPROPRIATE DILUENT 1 EA IV SCH (02:22)
[2017-07-14] MEDS ORDERED: METOCLOPRAMIDE INJ 10MG/2ML VIAL (J2765) IV PRN (02:30)
[2017-07-14] MEDS ORDERED: RHOGAM 300 MCG (1500 IU) INJ (J2790) IM SCH (02:30)
[2017-07-14] MEDS ORDERED: MEASLES,MUMPS,RUBELLA VACCINE INJ (MMR-II) (90707) SC SCH (02:30)
[2017-07-14] MEDS ORDERED: DIBUCAINE 1% OINTMENT 30GM TOP PRN (02:30)
[2017-07-14] MEDS ORDERED: ACETAMINOPHEN TAB 650MG DOSE (2X325MG) PO PRN (02:30)
[2017-07-14] MEDS ORDERED: LIDOCAINE 1% MDV INJ 50 ML VIAL INFIL ONE (02:30)
--- NOTE | 2017-07-14 02:38 | DNPDOC ---
[facility] Delivery Note Delivery Note DATE OF DELIVERY: [id number] at 0137 PREDELIVERY DIAGNOSIS: 41 3/7 weeks' gestation and labor. POST DELIVERY DIAGNOSIS: Delivered. PROCEDURE: Spontaneous vaginal delivery SHIFT MGR: Dr. Horowitz ANESTHESIA: Epidural ESTIMATED BLOOD LOSS: 200 mL. FINDINGS: 7 pound 8 ounce female infant, Score 9/10 DELIVERY SUMMARY: Called to room, was on perineum. Just a few pushes and del'd the vtx with no delay of the ant/post shoulders. To abd. Cord C/C by FOB. Cord blood. Placenta intact with slight traction. Pit going, fundus firm. No lacs. Uncomplicated. Bird HOROWITZ,PETER Hess MD Jul 14, 2017 02:38
[2017-07-14] MEDS: IBUPROFEN 800 MG TAB PO PRN ×2 (10:17→20:25)
[2017-07-14] MEDS: PRENATAL VITAMINS CHEWABLE TABLET PO SCH (10:17)
[2017-07-14] MEDS: DOCUSATE SODIUM 100 MG CAP PO SCH ×2 (10:17→21:00)
[2017-07-15 06:00] VITALS: BP 123/67
--- NOTE | 2017-07-15 06:39 | IPNPDOC ---
Progress Note Date of Service The patient was seen on 07/15/17 at 06:35. Progress Note BRIEF SUMMARY OF LABOR AND DELIVERY: PPD # 1 s/p of female infant 7 lbs 8 oz. IOL for pending post-dates, no laceration. Doing well. S: Denies SAN, SOB, CP, f/c/n/v. Tolerating a regular diet. Voiding without difficulty, +flatus, no BM at this time. Pt used 6 pily-pad overnight(changed every hour d/t a small amount of bleeding at each void). Denies breast sx. Infant is in room with mother . O: A&O x 3, VS WNL, afebrile, HR RRR, no m/r/g, Lungs CTA, abdomen soft NTTP, fundus firm @ U without tenderness. No edema in bilat LE A: 26 yo G3 n P2012 s/p doing well PPD #1. P: Continue routine PP care as appropriate Ambulate Q 1 hour while awake Plan to discharge to home today Continue to assist with as needed Strict pelvic rest for 6-8 weeks Plan condoms for control Regular diet Motrin and Tylenol PRN for discomfort VS, I&O, 24H, Fishbone Vital Signs/I&O Vital Signs Date Time Temp Pulse Resp B/P (MAP) Pulse Ox O2 Delivery O2 Flow Rate FiO2 07/15/17 06:00 98.1 66 18 123/67 (85) 98 Room Air BLESSING BALLARD CNM Jul 15, 2017 06:39
[2017-07-15] MEDS: PRENATAL VITAMINS CHEWABLE TABLET PO SCH (07:53)
[2017-07-15] MEDS: DOCUSATE SODIUM 100 MG CAP PO SCH (07:53)
[2017-07-15] MEDS ORDERED: MOTR200T44 PO (08:39)
[2017-07-15] MEDS ORDERED: COLA100C5 PO (08:39)
[2017-07-15] MEDS ORDERED: ACET50TA PO (08:39)
== END 2017-07-15 12:20 | disposition home or self-care (01) | DRG 775 ==
LOC: M LDI 12:58 → M OBS 07-14 07:15
PROVIDERS: ADMIT Obstetrics & Gynecology; ATTEND Obstetrics & Gynecology
PROC: 3E0DXGC Introduction of Other Therapeutic Substance into Mouth and Pharynx, External Approach (ICD-10-PCS; 2017-07-13)
PROC: 10E0XZZ Delivery of Products of Conception, External Approach (ICD-10-PCS; principal; 2017-07-14)
DX: O48.0 Post-term pregnancy (principal); Z37.0 Single live birth; Z3A.41 41 weeks gestation of pregnancy